=== PATIENT | female | born 1930 | race Caucasian/White ===

== ENCOUNTER 2016-11-27 16:06 | Emergency (ER) | payer MEDICARE, OTHER ==
[~2016-11-27] VITALS: Ht 149.9 cm; Wt 50.0 kg
[~2016-11-27 16:06] MED LIST: ASPI81TA81 PO; CALC1TAB42 PO; CHOL1TAB42 PO; GABA100C4 PO; ISOS60TA PO; LACTTAB8 PO; LISI-519 PO; MAGN250T11 PO; METO50TA11 PO; PLAV75TA29 PO; PROT40TA PO; SENN8.6T5 PO; SIMV10TA PO; TYLETAB36 PO
--- NOTE | 2016-11-27 16:35 | PD ---
HPI Chief Complaint: back pain Time Seen by Provider: 16:35 Travel History International Travel<30 days: No Contact w/Intl Traveler<30days: No Traveled to known affect area: No History of Present Illness HPI 86 year old female with history of CAD with stent placement, HTN, L breast mastectomy with LUE lymphedema presents to the ED for evaluation back pain radiating to her left axilla and shoulder. Associated nausea with slight increased SOB. Pt had a stress test done at Dr. Steinberg's office today and reports she had to receive medication to reverse the affects, which she has not had to do before. The stress test was done earlier than her regular scheduled because of an abnormality on her EKG; she is uncertain what. She states her angina always presented with back pain and this is similar to prior angina. She received 0.4mg SL nitro and 162 mg ASA en route from [facility] Past Medical History Arthritis: Yes Blood Disorders: No Anxiety: No Depression: No Cancer: Yes (LEFT BREAST) Cardiac Catheterization: Yes Cardiovascular Problems: Yes (CONGENTIAL HYPERTROPHIC OBSTR. CARDIOMYOPATHY, STENT) High Cholesterol: Yes Chemotherapy: No Congestive Heart Failure: No Coronary Artery Disease: Yes Diabetes: No Diminished Hearing: No Endocrine: No Gastrointestinal Disorders: Yes (reflux) GERD: Yes Genitourinary: No Hepatitis: No Hiatal Hernia: No Hypertension: Yes Immune Disorder: No Implanted Vascular Access Dvce: Yes (STENT) Musculoskeletal: Yes (ARTHRITIS, OSTEOPOROSIS) Neurologic: No Psychiatric: No Reproductive: No Respiratory: No Radiation Therapy: No Thyroid Disease: No Menopausal: Yes Dilation and Curettage (D&C): Yes Past Surgical History Abdominal Surgery: No Body Medical Devices: LUMBAR HARDWARE, CARDIAC STENT Cardiac Surgery: Yes (stent 5 yrs [id number]) Coronary Stent: Yes (X1) Ear Surgery: No Endocrine Surgery: No Eye Surgery: Yes (BRIELLE. CATARACT EXTRACT.) Genitourinary Surgery: No Joint Replacement: No Pacemaker: No Thoracic Surgery: Yes Other Surgery: Yes (BILATERAL HAND SX/RIGHT ROTATOR CUFF REPAIR) Social History Alcohol Use: No Tobacco Use: No (QUIT 40 YEARS AGO) Substance Use: No Allergies-Medications (Allergen,Severity, Reaction): Coded Allergies: Keflex (Verified Allergy, Intermediate, Diarrhea, 10/31/16) *MDRO Multi-Drug Resistant Organism (Verified Allergy, Unknown, 10/31/16) C.diff 12/2013, 06/2014 Reported Meds & Prescriptions Reported Meds & Active Scripts Active Reported Tylenol-Codeine #4 (Acetaminophen-Codeine) 300-60 mg Tab 1 Tab PO Q4H PRN Aspir-81 (Aspirin) 81 Mg Tabdr 1 Tab PO DAILY Calcium 500+D (Calcium Carbonate-Cholecalciferol) 500-200 Mg-Unit Tab 1 Tab PO DAILY Vitamin D-3 (Cholecalciferol) 2,000 Unit Tab 1 Tab PO DAILY Plavix (Clopidogrel Bisulfate) 75 Mg Tab 75 Mg PO DAILY Gabapentin 100 Mg Cap 100 Mg PO TID Isosorbide Mononitrate ER (Isosorbide Mononitrate) 60 Mg Tab 60 Mg PO HS Lactobacillus Acidophilus 1 Tab Tab 2 Tab PO DAILY Lisinopril 5 Mg Tab 5 Mg PO DAILY Magnesium Oxide 250 Mg Tab 250 Mg PO DAILY Metoprolol Succinate ER 24 HR (Metoprolol Succinate) 50 Mg Tab 50 Mg PO HS Protonix (Pantoprazole Sodium) 40 Mg Tab 40 Mg PO DAILY Simvastatin 10 Mg Tab 10 Mg PO HS Review of Systems Except as stated in HPI: all other systems reviewed are Neg Physical Exam Narrative GENERAL: Well nourished female patient, sitting up in bed; in no acute distress SKIN: Warm and dry. HEAD: Atraumatic. Normocephalic. EYES: Pupils equal and round. No scleral icterus. No injection or drainage. ENT: No nasal bleeding or discharge. Mucous membranes pink and moist. NECK: Trachea midline. No JVD. CARDIOVASCULAR: RESPIRATORY: No accessory muscle use. Clear to auscultation. Breath sounds equal bilaterally. GASTROINTESTINAL: Abdomen soft, non-tender, nondistended. Hepatic and splenic margins not palpable. MUSCULOSKELETAL: Extremities without clubbing, cyanosis, or edema. No obvious deformities. NEUROLOGICAL: Awake and alert. No obvious cranial nerve deficits. Motor grossly within normal limits. Five out of 5 muscle strength in the arms and legs. Normal speech. PSYCHIATRIC: Appropriate mood and affect; insight and judgment normal. Data Data Last Documented VS Vital Signs Date Time Temp Pulse Resp B/P Pulse Ox O2 Delivery O2 Flow Rate FiO2 11/27/16 18:36 18 95 Room Air 11/27/16 18:36 77 11/27/16 18:36 163/99 11/27/16 18:31 98.4 Orders Electrocardiogram (11/27/16 16:33) Basic Metabolic Panel (Bmp) (11/27/16 16:33) B-Type Natriuretic Peptide (11/27/16 16:33) Ckmb (Isoenzyme) Profile (11/27/16 16:33) Complete Blood Count With Diff (11/27/16 16:33) Magnesium (Mg) (11/27/16 16:33) Prothrombin Time / Inr (Pt) (11/27/16 16:33) Act Partial Throm Time (Ptt) (11/27/16 16:33) Troponin I (11/27/16 16:33) Chest, Single Ap (11/27/16 16:33) Ecg Monitoring (11/27/16 16:33) Bilateral Bp Monitoring (11/27/16 16:33) Iv Access Insert/Monitor (11/27/16 16:33) Oximetry (11/27/16 16:33) Oxygen Administration (11/27/16 16:33) Sodium Chloride 0.9% Flush (Ns Flush) (11/27/16 16:45) Nitroglycerin Sl (Nitrostat Sl) (11/27/16 16:45) Sodium Chlorid 0.9% 500 Ml Inj (Ns 500 M (11/27/16 16:45) Lipase (11/27/16 16:35) CKMB (11/27/16 17:10) CKMB% (11/27/16 17:10) Labs Laboratory Tests Test 11/27/16 17:10 White Blood Count 7.9 TH/MM3 Red Blood Count 4.28 MIL/MM3 Hemoglobin 12.3 GM/DL Hematocrit 37.0 % Mean Corpuscular Volume 86.5 FL Mean Corpuscular Hemoglobin 28.7 PG Mean Corpuscular Hemoglobin 33.1 % Concent Red Cell Distribution Width 14.2 % Platelet Count 258 TH/MM3 Mean Platelet Volume 7.8 FL Neutrophils (%) (Auto) 71.9 % Lymphocytes (%) (Auto) 17.4 % Monocytes (%) (Auto) 7.9 % Eosinophils (%) (Auto) 2.1 % Basophils (%) (Auto) 0.7 % Neutrophils # (Auto) 5.7 TH/MM3 Lymphocytes # (Auto) 1.4 TH/MM3 Monocytes # (Auto) 0.6 TH/MM3 Eosinophils # (Auto) 0.2 TH/MM3 Basophils # (Auto) 0.1 TH/MM3 CBC Comment DIFF FINAL Differential Comment Prothrombin Time 10.3 SEC Prothromb Time International 0.9 RATIO Ratio Activated Partial 22.7 SEC Thromboplast Time Sodium Level 143 MEQ/L Potassium Level 3.9 MEQ/L Chloride Level 107 MEQ/L Carbon Dioxide Level 30.3 MEQ/L Anion Gap 6 MEQ/L Blood Urea Nitrogen 15 MG/DL Creatinine 0.69 MG/DL Estimat Glomerular Filtration 81 ML/MIN Rate Random Glucose 100 MG/DL Calcium Level 8.8 MG/DL Magnesium Level 2.0 MG/DL Total Creatine Kinase 116 U/L Creatine Kinase MB 1.6 NG/ML Troponin I LESS THAN 0.02 NG/ML B-Type Natriuretic Peptide 170 PG/ML Lipase 98 U/L [facility] Medical Decision Making Medical Screen Exam Complete: Yes Emergency Medical Condition: Yes Medical Record Reviewed: Yes Differential Diagnosis ACS versus chest wall pain versus pancreatitis versus muscle strain Narrative Course 86 year old female presents to the ED for evaluation. Work up is initiated in ambulance hallway. Once a bed becomes available, pt will be transferred and care assumed by that provider. Diagnosis Primary Impression: Coronary artery disease Qualified Code: I25.119 - Coronary artery disease involving [place] heart with angina pectoris, unspecified vessel or lesion type Referrals: Jarett Steinberg MD Patient Instructions: Angina (ED), General Instructions Med/Other Pt SpecificInfo: No Change to Meds Disposition: 01 DISCHARGE HOME Condition: Stable Luz Houston Nov 27, 2016 16:35
[2016-11-27] MEDS ORDERED: SODIUM CHLORID 0.9% 500 ML INJ 500 ML IV ONE (16:45)
[2016-11-27] MEDS ORDERED: SODIUM CHLORIDE 0.9% FLUSH 5 ML FLUSH IVF PRN (16:45)
[2016-11-27] MEDS ORDERED: NITROGLYCERIN 0.4 MG SL 25 TABS/BTL SL ONE (16:45)
--- NOTE | 2016-11-27 17:09 | RADRPT ---
EXAM DATE/TIME: 11/27/2016 16:50 [facility] COMPARISON: CHEST SINGLE AP, October 04, 2015, 7:48. INDICATIONS : Patient complains of chest pain. MEDICAL HISTORY : Carcinoma, breast. SURGICAL HISTORY : Mastectomy, left. Coronary artery stent. ENCOUNTER: Initial ACUITY: 2 days PAIN SCORE: 4/10 LOCATION: chest FINDINGS: Lungs are focally clear. No pleural effusion is suspected. Cardiomediastinal contours are stable and satisfactory. Surgical clips are present in the left breast and axilla. Previous lumbar spine hardwar e fusion. CONCLUSION: No acute disease. Anthony Stoll MD on November 27, 2016 at 17:07 Board Certified Radiologist. This report was verified electronically.
[2016-11-27 17:38] LABS: AUTOMATED NEUTROPHIL # 5.7 TH/MM3 (1.8-7.7); BASOPHIL # 0.1 TH/MM3 (0-0.2); BASOPHIL % 0.7 % (0.0-2.0); EOSINOPHIL # 0.2 TH/MM3 (0-0.4); EOSINOPHIL % 2.1 % (0.0-4.0); HEMO FLAGS DIFF FINAL; LYMPH % 17.4 % (9.0-44.0); LYMPHOCYTE # 1.4 TH/MM3 (1.0-4.8); MEAN CELL VOLUME 86.5 FL (80.0-100.0); MEAN CORPUSCULAR HEMOGLOBIN 28.7 PG (27.0-34.0); MEAN CORPUSCULAR HGB CONC 33.1 % (32.0-36.0); MONO % 7.9 % (0.0-8.0); NEUT % 71.9 % (16.0-70.0); PLATELET COUNT 258 TH/MM3 (150-450); RED BLOOD COUNT 4.28 MIL/MM3 (4.00-5.30); RED CELL DISTRIBUTION WIDTH 14.2 % (11.6-17.2); WHITE BLOOD COUNT 7.9 TH/MM3 (4.0-11.0)
[2016-11-27 17:50] LABS: APTT (PATIENT) 22.7 SEC (24.3-30.1); INTERNATIONAL NORMALIZED RATIO 0.9 RATIO; PROTHROMBIN TIME - PATIENT 10.3 SEC (9.8-11.6)
[2016-11-27 18:01] LABS: CREATINE KINASE 116 U/L (26-192)
[2016-11-27 18:06] LABS: ANION GAP 6 MEQ/L (5-15); BICARBONATE 30.3 MEQ/L (21.0-32.0); BLOOD UREA NITROGEN 15 MG/DL (7-18); CHLORIDE 107 MEQ/L (98-107); GLOMERULAR FILTRATION RATE 81 ML/MIN (>89); POTASSIUM 3.9 MEQ/L (3.5-5.1); SODIUM (NA) 143 MEQ/L (136-145)
[2016-11-27 18:14] LABS: CKMB 1.6 NG/ML (0.5-3.6)
[2016-11-27 18:30] VITALS: BP 163/99; PULSE 62; RESP 18; TEMP 98.2; O2SAT 96
[2016-11-27 18:31] VITALS: BP 163/99; PULSE 71; RESP 18; TEMP 98.4; O2SAT 95
[2016-11-27 18:36] VITALS: BP 163/99; PULSE 66; RESP 18; O2SAT 95
--- NOTE | 2016-11-28 11:57 | EKG ---
Date Performed: 11/27/2016 Time Performed: 16:44:41 PTAGE: 86 years EKG: Sinus rhythm NONSPECIFIC T-WAVE ABNORMALITY Compared to previous tracing, T waves are much flatter. ABNORMAL ECG PREVIOUS TRACING : 02/12/2016 08.53 DOCTOR: Fransico Best Interpretating Date/Time 11/28/2016 11:57:00
[2016-12-16] MEDS ORDERED: FLOR250C PO (08:13)
[2016-12-16] MEDS ORDERED: ZANT150T2 PO (08:13)
[2017-03-19] MEDS ORDERED: PONASOL EACH NARE (08:53)
[2017-05-09] MEDS ORDERED: NEXI20CA PO (09:34)
== END 2016-11-27 20:52 | disposition home or self-care (01) ==
LOC: NEPC 16:06
DX: I25.119 Atherosclerotic heart disease of native coronary artery with unspecified angina pectoris (principal); R11.0 Nausea; R06.02 Shortness of breath; R94.31 Abnormal electrocardiogram [ECG] [EKG]; E78.00 Pure hypercholesterolemia, unspecified; K21.9 Gastro-esophageal reflux disease without esophagitis; I10 Essential (primary) hypertension; Z87.891 Personal history of nicotine dependence; Z95.5 Presence of coronary angioplasty implant and graft
CPT/HCPCS: 71010; 80048; 82550; 82552; 83690; 83735; 83880; 84484; 85025; 85610; 85730; 93005; 96360; 99284; J7040

== ENCOUNTER → 2016-12-30 | Outpatient (CLI) | payer MEDICARE, OTHER ==
[~2016-12-30] MED LIST changes: +FLOR250C PO; -LACTTAB8 PO; +NEXI20CA PO; +ONDA1TAB16 PO; +PONASOL EACH NARE; +SENN8.6T36 PO; -SENN8.6T5 PO; +ZANT150T2 PO
[2016-12-30 10:48] LABS: AUTOMATED NEUTROPHIL # 7.3 TH/MM3 (1.8-7.7); BASOPHIL # 0.1 TH/MM3 (0-0.2); BASOPHIL % 1.1 % (0.0-2.0); EOSINOPHIL # 0.2 TH/MM3 (0-0.4); EOSINOPHIL % 2.4 % (0.0-4.0); HEMO FLAGS DIFF FINAL; LYMPH % 17.8 % (9.0-44.0); LYMPHOCYTE # 1.8 TH/MM3 (1.0-4.8); MEAN CELL VOLUME 86.3 FL (80.0-100.0); MEAN CORPUSCULAR HEMOGLOBIN 28.9 PG (27.0-34.0); MEAN CORPUSCULAR HGB CONC 33.5 % (32.0-36.0); MONO % 7.1 % (0.0-8.0); NEUT % 71.6 % (16.0-70.0); PLATELET COUNT 244 TH/MM3 (150-450); RED BLOOD COUNT 4.28 MIL/MM3 (4.00-5.30); RED CELL DISTRIBUTION WIDTH 14.4 % (11.6-17.2); WHITE BLOOD COUNT 10.1 TH/MM3 (4.0-11.0)
[2016-12-30 11:14] LABS: ALKALINE PHOSPHATASE 50 U/L (45-117); ALT (GPT) 17 U/L (10-53); ANION GAP 6 MEQ/L (5-15); AST (GOT) 13 U/L (15-37); BICARBONATE 31.5 MEQ/L (21.0-32.0); BLOOD UREA NITROGEN 14 MG/DL (7-18); CHLORIDE 105 MEQ/L (98-107); GLOMERULAR FILTRATION RATE 66 ML/MIN (>89); GLUCOSE,FASTING 87 MG/DL (74-99); HDL CHOLESTEROL 73.5 MG/DL (40.0-60.0); LDL CHOLESTEROL 84 MG/DL (0-99); POTASSIUM 3.9 MEQ/L (3.5-5.1); SODIUM (NA) 142 MEQ/L (136-145); TOTAL BILIRUBIN ADULT 0.5 MG/DL (0.2-1.0)
== END ==
LOC: CLAB 10:06
PROVIDERS: ATTEND Family Medicine
DX: D64.9 Anemia, unspecified (principal); I25.10 Atherosclerotic heart disease of native coronary artery without angina pectoris; E78.5 Hyperlipidemia, unspecified; I10 Essential (primary) hypertension
CPT/HCPCS: 36415; 80053; 80061; 85025

== ENCOUNTER → 2017-02-24 | Outpatient (CLI) | payer MEDICARE, OTHER ==
[2017-02-24 12:03] LABS: RHEUMATOID FACTOR TRIGGER LESS THAN 10.0 IU/ML (0.0-14.9)
== END ==
LOC: CLAB 11:16
PROVIDERS: ATTEND Orthopaedic Surgery Orthopaedic Surgery of the Spine
DX: M79.0 Rheumatism, unspecified (principal)
CPT/HCPCS: 36415; 85652; 86430

== ENCOUNTER 2017-04-10 16:49 | Emergency (ER) | payer MEDICARE, OTHER ==
[~2017-04-10] VITALS: Ht 144.8 cm; Wt 48.0 kg
[~2017-04-10 16:49] MED LIST changes: -NEXI20CA PO; -ONDA1TAB16 PO; -SENN8.6T36 PO
[2017-04-10 17:15] VITALS: BP 139/66; PULSE 69; RESP 16; TEMP 98; O2SAT 95
[2017-04-10] MEDS ORDERED: ALUMINUM/MAGNESIUM/SIMETH 30 ML CUP PO ONE (17:30)
[2017-04-10] MEDS ORDERED: LIDOCAINE VISCOUS 2% SOLN 15 ML UDC PO ONE (17:30)
[2017-04-10] MEDS ORDERED: ONDA1TAB16 PO (17:30)
[2017-04-10] MEDS ORDERED: SENN8.6T36 PO (17:30)
--- NOTE | 2017-04-10 17:35 | PD ---
HPI Chief Complaint: ENT Complaint Time Seen by Provider: 17:20 Travel History International Travel<30 days: No Contact w/Intl Traveler<30days: No Traveled to known affect area: No History of Present Illness HPI 87-year-old female presents via EMS for evaluation of irritation on swallowing. She reports that 3 hours prior to arrival she ate some scrambled eggs and some crackers. She has had some irritation when swallowing since then, sensation of foreign body in the esophagus. She drank some hot tea which typically helps when this happens and the symptoms have persisted which prompted evaluation. She denies any chest pain, shortness of breath, nausea, vomiting, abdominal pain. She has been able to swallow liquids since the symptoms began. She reports a few months ago she had a normal barium swallow study. She does report that from time to time she gets this symptom of dysphagia. No other complaints. PFSH Past Medical History Arthritis: Yes Blood Disorders: No Anxiety: No Depression: No Cancer: Yes (LEFT BREAST) Cardiac Catheterization: Yes Cardiovascular Problems: Yes (CONGENTIAL HYPERTROPHIC OBSTR. CARDIOMYOPATHY, STENT) High Cholesterol: Yes Chemotherapy: No Congestive Heart Failure: No Coronary Artery Disease: Yes Diabetes: No Diminished Hearing: No Endocrine: No Gastrointestinal Disorders: Yes (GERD, HX C DIFF (X3)) GERD: Yes Genitourinary: No Hepatitis: No Hiatal Hernia: No Hypertension: Yes Immune Disorder: No Implanted Vascular Access Dvce: Yes (STENT) Musculoskeletal: Yes (ARTHRITIS, OSTEOPOROSIS) Neurologic: No Psychiatric: No Reproductive: No Respiratory: No Radiation Therapy: No Thyroid Disease: No ?: Not Menopausal: Yes Dilation and Curettage (D&C): Yes Past Surgical History Abdominal Surgery: No Body Medical Devices: LUMBAR HARDWARE, CARDIAC STENT Cardiac Surgery: Yes (stent 5 yrs [id number]) Coronary Stent: Yes (X1) Ear Surgery: No Endocrine Surgery: No Eye Surgery: Yes (BRIELLE. CATARACT EXTRACT.) Genitourinary Surgery: No Joint Replacement: No Pacemaker: No Thoracic Surgery: Yes Other Surgery: Yes (BILATERAL HAND SX/RIGHT ROTATOR CUFF REPAIR) Social History Alcohol Use: No Tobacco Use: No (QUIT 40 YEARS AGO) Substance Use: No Allergies-Medications (Allergen,Severity, Reaction): Coded Allergies: Keflex (Verified Allergy, Intermediate, Diarrhea, 04/10/17) *MDRO Multi-Drug Resistant Organism (Verified Allergy, Unknown, 04/10/17) C.diff 12/2013, 06/2014 Reported Meds & Prescriptions Reported Meds & Active Scripts Active Reported Ondansetron (Ondansetron HCl) 4 Mg Tab 4 Mg PO TID PRN Senna-Tabs (Sennosides) 8.6 Mg Tab 8.6 Mg PO BID Ponaris (Misc Natural Product Nasal) 1 Suha Suha 2 Drop EACH NARE BID Zantac (Ranitidine HCl) 150 Mg Tab 150 Mg PO BID Florastor (Saccharomyces Boulardii) 250 Mg Cap 250 Mg PO BID Tylenol-Codeine #4 (Acetaminophen-Codeine) 300-60 mg Tab 1 Tab PO Q4H PRN Aspir-81 (Aspirin) 81 Mg Tabdr 1 Tab PO DAILY Calcium 500+D (Calcium Carbonate-Cholecalciferol) 500-200 Mg-Unit Tab 1 Tab PO DAILY Vitamin D-3 (Cholecalciferol) 2,000 Unit Tab 1 Tab PO DAILY Plavix (Clopidogrel Bisulfate) 75 Mg Tab 75 Mg PO DAILY Isosorbide Mononitrate ER (Isosorbide Mononitrate) 60 Mg Tab 60 Mg PO HS Lisinopril 5 Mg Tab 5 Mg PO DAILY Magnesium Oxide 250 Mg Tab 250 Mg PO DAILY Metoprolol Succinate ER 24 HR (Metoprolol Succinate) 50 Mg Tab 50 Mg PO HS Protonix (Pantoprazole Sodium) 40 Mg Tab 40 Mg PO DAILY Simvastatin 10 Mg Tab 10 Mg PO HS Review of Systems Except as stated in HPI: all other systems reviewed are Neg Physical Exam Narrative GENERAL: Pleasant well-developed well-nourished female in no acute distress resting comfortably in hospital bed. Vital signs reviewed. SKIN: Warm and dry. HEAD: Atraumatic. Normocephalic. EYES: Pupils equal and round. No scleral icterus. No injection or drainage. ENT: No nasal bleeding or discharge. Mucous membranes pink and moist. Voice is not hoarse or muffled, no stridor or drooling. NECK: Trachea midline. No JVD. CARDIOVASCULAR: Regular rate and rhythm. No murmur appreciated. RESPIRATORY: No accessory muscle use. Clear to auscultation. Breath sounds equal bilaterally. GASTROINTESTINAL: Abdomen soft, non-tender, nondistended. Hepatic and splenic margins not palpable. MUSCULOSKELETAL: No obvious deformities. No edema NEUROLOGICAL: Awake and alert. No obvious cranial nerve deficits. Motor grossly within normal limits. Normal speech. PSYCHIATRIC: Appropriate mood and affect; insight and judgment normal. Data Data Last Documented VS Vital Signs Date Time Temp Pulse Resp B/P Pulse Ox O2 Delivery O2 Flow Rate FiO2 04/10/17 17:15 98.0 69 16 139/66 95 Orders Soft Tissue Neck (04/10/17 ) Al-Mag Hy-Si 40-40-4 Mg/Ml Liq (Mag-Al P (04/10/17 17:30) Lidocaine 2% Viscous (Xylocaine 2% Visco (04/10/17 17:30) MDM Medical Decision Making Medical Screen Exam Complete: Yes Emergency Medical Condition: Yes Medical Record Reviewed: Yes Differential Diagnosis Esophageal irritation, esophageal foreign body, esophageal stricture, achalasia Narrative Course 87-year-old female presents with esophageal foreign body sensation after eating scrambled eggs and crackers. She has been able to drink hot tea since then. Physical examination is reassuring. I suspect some esophageal irritation as opposed to an obstruction. I don't suspect referred cardiac pain. Plan is for soft tissue x-ray of the neck, GI cocktail, oral challenge. Likely this patient would benefit from outpatient endoscopy and she agrees because she does note that this has happened from time to time in the past. X-ray imaging reveals no acute abnormalities. The patient's symptoms almost completely resolved after the administration of a GI cocktail. She was able to swallow water afterwards without any difficulty. She is stable for discharge, outpatient follow-up. Diagnosis Primary Impression: Sensation of foreign body in esophagus Referrals: Product Planner Primary Care Physician Additional Instructions: Follow-up with primary care physician, screen handler likely for outpatient endoscopy. Return for any acutely new or worsening symptoms. Med/Other Pt SpecificInfo: No Change to Meds Disposition: 01 DISCHARGE HOME Condition: Stable Zane Lawson April 10, 2017 17:35
--- NOTE | 2017-04-10 18:26 | RADRPT ---
EXAM DATE/TIME: 04/10/2017 17:50 [facility] COMPARISON: No previous studies available for comparison. INDICATIONS : Dysphagia. Patient feels like something stuck in her throat. MEDICAL HISTORY : Carcinoma, breast. SURGICAL HISTORY : Mastectomy, left. Coronary artery stent. ENCOUNTER: Initial ACUITY: 1 day PAIN SCORE: 11/26 LOCATION: Throat. FINDINGS: Two view examination of the soft tissues of the neck demonstrates the hypopharyngeal airway to have a grossly normal configuration. The trachea is midline. No radiopaque foreign bodies are seen. Severe degenerative changes are seen in the mid and lower cervical spine. CONCLUSION: Within normal limits. No foreign body seen. Anthony Narvaez MD on April 10, 2017 at 18:24 Board Certified Radiologist. This report was verified electronically.
[2017-05-09] MEDS ORDERED: NEXI20CA PO (09:34)
== END 2017-04-10 19:10 | disposition home or self-care (01) ==
LOC: NEPC 16:49
DX: R09.89 Other specified symptoms and signs involving the circulatory and respiratory systems (principal); R13.10 Dysphagia, unspecified; I10 Essential (primary) hypertension
CPT/HCPCS: 70360; 99283

== ENCOUNTER → 2017-05-09 | Day surgery (SDC) | payer MEDICARE, OTHER ==
[~2017-05-09] MED LIST changes: -GABA100C4 PO; +LIDOCAINE HCL 1% PF 30 ML VIAL INFIL ONE; +NEXI20CA PO; +ONDA1TAB16 PO; +PROPOFOL 200 MG/20 ML AMP IV ONE; +SENN8.6T36 PO; +SODIUM CHLORIDE 0.9% 10 ML VIAL ONE; +methylPREDNISolone ACETATE 80 MG/ML VIAL ONE
--- NOTE | 2017-05-10 22:20 | M6 ---
cc: PAMELA MOCTEZUMA M.D. DATE: 05/09/2017. DATE OF : 1930. PROCEDURE PERFORMED: Caudal epidural steroid injection. DESCRIPTION OF THE PROCEDURE IN DETAIL: An IV was started, blood pressure cuff, pulse oximeter and EKG were applied. The patient was placed in the prone position, sedated with small amounts of Versed and propofol titrated to effect. Vital signs were monitored and remained stable throughout the procedure. The sacral and coccygeal area were scrubbed with antimicrobial solution and prepped with 10% Betadine solution. The sacral hiatus was palpated. A 2-1/2-inch 20 gauge spinal needle was inserted easily on the first attempt. There was negative aspiration for blood or CSF. There was no apparent paresthesia. The patient was slowly given 20 mL of 0.5% Xylocaine which contained 80 mg of Depo-Medrol. The patient was taken to the recovery area with stable vital signs, neurologically intact. W. MD FALGUNI Abreu/TERESSA /10:14 AM /10:21 PM
== END | disposition home or self-care (01) ==
LOC: PHSDC 09:10
PROVIDERS: ATTEND Pain Medicine Interventional Pain Medicine
DX: M54.5 Low back pain (principal); M25.559 Pain in unspecified hip
CPT/HCPCS: 62323; 99152; J1040

== ENCOUNTER 2018-04-10 07:37 | Emergency (ER) | payer MEDICARE, OTHER ==
[~2018-04-10] VITALS: Ht 162.6 cm; Wt 70.0 kg
[~2018-04-10 07:37] MED LIST changes: -FLOR250C PO; -LIDOCAINE HCL 1% PF 30 ML VIAL INFIL ONE; +METO1TAB9 PO; -METO50TA11 PO; +MIRA3350 PO; -NEXI20CA PO; -ONDA1TAB16 PO; +ONDA4TAB15 PO; -PROPOFOL 200 MG/20 ML AMP IV ONE; -SENN8.6T36 PO; -SODIUM CHLORIDE 0.9% 10 ML VIAL ONE; -methylPREDNISolone ACETATE 80 MG/ML VIAL ONE
[2018-04-10 07:44] VITALS: BP 150/70; PULSE 60; RESP 16; TEMP 98.4; O2SAT 98
[2018-04-10] MEDS ORDERED: LIDOCAINE VISCOUS 2% SOLN 15 ML UDC PO ONE (08:45)
[2018-04-10] MEDS ORDERED: ALUMINUM/MAGNESIUM/SIMETH 30 ML CUP PO ONE (08:45)
--- NOTE | 2018-04-10 08:58 | PD ---
HPI Chief Complaint: ENT Complaint Time Seen by Provider: 08:25 Travel History International Travel<30 days: No Contact w/Intl Traveler<30days: No Traveled to known affect area: No History of Present Illness HPI 88-year-old female presents to the emergency room for evaluation of sensation of foreign body in her throat. Patient states she had some difficulty/soreness with her throat last night but woke up with worsening symptoms. States she feels like she is breathing in normally but that she has to push air out. Since awaking, her symptoms have improved but not completely resolved. She has not eaten or drink anything because she is concerned it will get stuck in her throat. Discomfort is localized to the sternal notch area. She denies any chest pain. Patient states she has had a barium swallow study by an ENT previously and was told that she has an old valve. She has had one stent placed by her family development specialist whom she sees yearly for a stress test. Her last stress test was February 2017 and normal. PFSH Past Medical History Arthritis: Yes Blood Disorders: No Anxiety: No Depression: No Cancer: Yes (LEFT BREAST) Cardiac Catheterization: Yes Cardiovascular Problems: Yes (CONGENTIAL HYPERTROPHIC OBSTR. CARDIOMYOPATHY, STENT) High Cholesterol: Yes Chemotherapy: No Congestive Heart Failure: No Coronary Artery Disease: Yes Diabetes: No Diminished Hearing: No Endocrine: No Gastrointestinal Disorders: Yes (GERD, HX C DIFF (X3)) GERD: Yes Genitourinary: No Hepatitis: No Hiatal Hernia: No Hypertension: Yes Immune Disorder: No Implanted Vascular Access Dvce: Yes (STENT) Musculoskeletal: Yes (ARTHRITIS, OSTEOPOROSIS) Neurologic: No Psychiatric: No Reproductive: No Respiratory: No Radiation Therapy: No Thyroid Disease: No ?: Not Menopausal: Yes Dilation and Curettage (D&C): Yes Past Surgical History Abdominal Surgery: No Body Medical Devices: LUMBAR HARDWARE, CARDIAC STENT Cardiac Surgery: Yes (stent 5 yrs [id number]) Coronary Stent: Yes (X1) Ear Surgery: No Endocrine Surgery: No Eye Surgery: Yes (BRIELLE. CATARACT EXTRACT.) Genitourinary Surgery: No Joint Replacement: No Pacemaker: No Thoracic Surgery: Yes Other Surgery: Yes (BILATERAL HAND SX/RIGHT ROTATOR CUFF REPAIR) Social History Alcohol Use: No Tobacco Use: No (QUIT 40 YEARS AGO) Substance Use: No Allergies-Medications (Allergen,Severity, Reaction): Coded Allergies: cephalexin (Unverified Allergy, Intermediate, Diarrhea, 12/08/17) *MDRO Multi-Drug Resistant Organism (Verified Allergy, Unknown, 05/09/17) C.diff 12/2013, 06/2014 Reported Meds & Prescriptions Reported Meds & Active Scripts Active Reported Miralax Powder (Polyethylene Glycol 3350 Powder) 17 Gm Powd 17 Gm PO DAILY Mix and dissolve one measuring cap-ful (17 grams) in water or juice. Ondansetron (Ondansetron HCl) 4 Mg Tab 4 Mg PO TID PRN Ponaris (Misc Natural Product Nasal) 1 Suha Suha 2 Drop EACH NARE BID Zantac (Ranitidine HCl) 150 Mg Tab 150 Mg PO BID Tylenol-Codeine #4 (Acetaminophen-Codeine) 300-60 mg Tab 1 Tab PO Q4H PRN Aspir-81 (Aspirin) 81 Mg Tabdr 1 Tab PO DAILY Calcium 500+D (Calcium Carbonate-Cholecalciferol) 500-200 Mg-Unit Tab 1 Tab PO DAILY Vitamin D-3 (Cholecalciferol) 2,000 Unit Tab 1 Tab PO DAILY Plavix (Clopidogrel Bisulfate) 75 Mg Tab 75 Mg PO DAILY Isosorbide Mononitrate ER (Isosorbide Mononitrate) 60 Mg Tab 60 Mg PO HS Lisinopril 5 Mg Tab 5 Mg PO DAILY Magnesium Oxide 250 Mg Tab 250 Mg PO DAILY Metoprolol Succinate ER 24 HR (Metoprolol Succinate) 50 Mg Tab 50 Mg PO HS Protonix (Pantoprazole Sodium) 40 Mg Tab 40 Mg PO DAILY Simvastatin 10 Mg Tab 10 Mg PO HS Review of Systems Except as stated in HPI: all other systems reviewed are Neg Physical Exam Narrative GENERAL: Well-nourished, elderly female in no acute distress. Afebrile. Ambulatory. SKIN: Focused skin assessment warm/dry. HEAD: Normocephalic. EYES: No scleral icterus. No injection or drainage. NECK: Supple, trachea midline. No JVD or lymphadenopathy. ENT: Mucosa pink and moist. No erythema or exudates. No uvular edema. No uvular , palatal, or tonsillar deviation. Airway patent. Nasal turbinates appear normal without nasal blood, purulent drainage or septal hematoma. CARDIOVASCULAR: Regular rate and rhythm without murmurs, gallops, or rubs. RESPIRATORY: Breath sounds equal bilaterally. No accessory muscle use. Data Data Last Documented VS Vital Signs Date Time Temp Pulse Resp B/P (MAP) Pulse Ox O2 Delivery O2 Flow Rate FiO2 04/10/18 07:44 98.4 60 16 150/70 (96) 98 Orders Orders Electrocardiogram (04/10/18 08:39) Al-Mag Hy-Si 40-40-4 Mg/Ml Liq (Mag-Al P (04/10/18 08:45) Lidocaine 2% Viscous (Xylocaine 2% Visco (04/10/18 08:45) Barium Swallow (04/10/18 ) Nursing Bedside Swallow Assess .ONCE (04/10/18 10:29) MDM Medical Decision Making Medical Screen Exam Complete: Yes Emergency Medical Condition: Yes Medical Record Reviewed: Yes Differential Diagnosis Sensation of foreign body in esophagus, referred chest pain, dry mouth, viral pharyngitis, old valve Narrative Course 88-year-old female presents to the emergency room for evaluation of sensation of foreign body in her esophagus. States she had some symptoms last night but woke up with worsening symptoms. She has not eaten or drinking today because she is concerned that she is not going to be able to swallow it. States she can breath in without difficulty but she feels like she has to push air out. She has had a sensation multiple times before and has even been seen in the emergency room for it 1 year ago today. States she went to an ENT and had a barium swallow study performed that showed she had a "old esophagus." She was supposed to see a major general for endoscopy and states she has had one done but she cannot give a timeframe. Patient states her symptoms have improved even while in the emergency room. She was given GI cocktail and tolerated it without difficulty. She was then requesting food and water. Her airway is patent on exam. She is resting comfortably with no increased work of breathing. She denies any chest pain. EKG shows sinus bradycardia with [address] changes. Patient routinely sees a family development specialist and reports her last stress test was 1 year ago in normal. I do not feel this is referred pain. Repeat barium swallow in the ED shows moderate presbyesophagus but is otherwise normal. Patient was monitored eating and drinking in the emergency room without difficulty. She was told to follow-up with a gas or neurologist for outpatient endoscopy if symptoms persist or return for worsening symptoms. She understands and agrees to plan per Diagnosis Primary Impression: Sensation of foreign body in esophagus Referrals: Leather Tacker Additional Instructions: Eat soft foods and thick liquids. Follow-up with a major general for outpatient endoscopy. Return to the emergency room for worsening symptoms. Disposition: 01 DISCHARGE HOME Condition: Stable Naomy Tena April 10, 2018 08:58
--- NOTE | 2018-04-10 10:22 | RADRPT ---
EXAM DATE: 04/10/2018 10:16 AM EDT AGE/SEX: 88 years / Female INDICATIONS: Stricture. Patient states she feels like something is stuck in her throat, and also is having difficulty breathing. She is having difficulty exhaling. CLINICAL DATA: This is the patient's initial encounter. Patient reports that signs and symptoms have been present for 1 day and indicates a pain score of 0/10. MEDICAL/SURGICAL HISTORY: Carcinoma, breast. Mastectomy, left. Coronary artery stent. COMPARISON: No prior [facility] exams available for comparison. FLUORO TIME: 1.7 IMAGE COUNT: 58 images. FINDINGS: Air-contrast views of the hypopharynx demonstrate a normal mucosal surface without filling defect. R apid sequence images of the hypopharynx and cervical esophagus during the passage of barium demonstra te a normal swallowing function. No evidence of aspiration. Multiphasic examination of the esophagu s demonstrates moderate presbyesophagus with frequent tertiary contractions. No esophageal fold thick ening, ulceration, or filling defect. The gastroesophageal junction is normal in configuration witho ut evidence of hiatal hernia. CONCLUSION: Moderate presbyesophagus. Otherwise normal Electronically signed by: Anthony Stoll MD 04/10/2018 10:21 AM EDT
[2018-04-10 12:45] VITALS: BP 143/68
--- NOTE | 2018-04-10 19:37 | EKG ---
Date Performed: 04/10/2018 Time Performed: 08:51:12 PTAGE: 88 years EKG: SINUS BRADYCARDIA NONSPECIFIC T-WAVE ABNORMALITY BORDERLINE ECG Compared to PREVIOUS TRACING , the patient is now bradycardic. PREVIOUS TRACIN11/27/2016 16.44 DOCTOR: Lucy Calix Interpretating Date/Time 04/10/2018 19:36:12
== END 2018-04-10 12:46 | disposition home or self-care (01) ==
LOC: NEPD 07:37
DX: R19.8 Other specified symptoms and signs involving the digestive system and abdomen (principal); E78.00 Pure hypercholesterolemia, unspecified; I10 Essential (primary) hypertension; I25.10 Atherosclerotic heart disease of native coronary artery without angina pectoris; K21.9 Gastro-esophageal reflux disease without esophagitis; Z79.02 Long term (current) use of antithrombotics/antiplatelets; Z87.891 Personal history of nicotine dependence
CPT/HCPCS: 74230; 93005

== ENCOUNTER → 2018-04-28 | Outpatient (CLI) | payer MEDICARE, OTHER ==
[2018-04-28 07:53] LABS: AUTOMATED NEUTROPHIL # 5.8 TH/MM3 (1.8-7.7); BASOPHIL # 0.1 TH/MM3 (0-0.2); BASOPHIL % 0.7 % (0.0-2.0); EOSINOPHIL # 0.2 TH/MM3 (0-0.4); EOSINOPHIL % 2.3 % (0.0-4.0); HEMOGLOBIN 11.3 GM/DL (11.6-15.3); LYMPH % 18.3 % (9.0-44.0); LYMPHOCYTE # 1.6 TH/MM3 (1.0-4.8); MEAN CELL VOLUME 80.1 FL (80.0-100.0); MEAN CORPUSCULAR HEMOGLOBIN 25.8 PG (27.0-34.0); MEAN CORPUSCULAR HGB CONC 32.2 % (32.0-36.0); MONO % 11.6 % (0.0-8.0); NEUT % 67.1 % (16.0-70.0); PLATELET COUNT 358 TH/MM3 (150-450); RED BLOOD COUNT 4.37 MIL/MM3 (4.00-5.30); RED CELL DISTRIBUTION WIDTH 16.7 % (11.6-17.2); WHITE BLOOD COUNT 8.7 TH/MM3 (4.0-11.0)
[2018-04-28 08:01] LABS: ALBUMIN 3.4 GM/DL (3.4-5.0); ALT (GPT) 12 U/L (10-53); AST (GOT) 12 U/L (15-37); BICARBONATE 31.7 MEQ/L (21.0-32.0); BLOOD UREA NITROGEN 14 MG/DL (7-18); CHLORIDE 103 MEQ/L (98-107); CHOLESTEROL 172 MG/DL (120-200); CREATININE 0.83 MG/DL (0.50-1.00); GLOMERULAR FILTRATION RATE 65 ML/MIN (>89); GLUCOSE,FASTING 87 MG/DL (74-99); SODIUM (NA) 141 MEQ/L (136-145)
[2018-04-28 08:04] LABS: ALKALINE PHOSPHATASE 76 U/L (45-117); CHOLESTEROL/ HDL RATIO 2.36 RATIO; HDL CHOLESTEROL 72.6 MG/DL (40.0-60.0); LDL CHOLESTEROL 82 MG/DL (0-99); TOTAL BILIRUBIN ADULT 0.5 MG/DL (0.2-1.0); TOTAL PROTEIN 7.5 GM/DL (6.4-8.2); TRIGLYCERIDES 87 MG/DL (42-150)
== END ==
LOC: CLAB 07:15
PROVIDERS: ATTEND Family Medicine
DX: D64.9 Anemia, unspecified (principal); E78.5 Hyperlipidemia, unspecified; I11.9 Hypertensive heart disease without heart failure
CPT/HCPCS: 36415; 80053; 80061; 85025